=== PATIENT | male | born 1955 | race Hispanic/Latino ===

== ENCOUNTER → 2025-04-21 | Day surgery (SDC) | payer MEDICARE ==
[~2025-04-21] MED LIST: ATORVASTATIN CA20 MG PO; CENTRUM ADULTS1 EACH PO; CLOBETASOL1 EA/15 GM PO; FAMOTIDINE20 MG PO; FENTANYL CITRATE/PF 100MCG/2 ML INJ ONE; FLUOCINONIDE60 ML; IRON; LACTATED RINGER'S 1,000 ML ONE; LIDOCAINE HCL 2% LOCAL INJ 5 ML SDV VIAL INJ ONE; ONDANSETRON ODT4 MG PO; PROPOFOL IV EMULSION 50 ML IV ONE; SIMETHICONE80 MG PO; TYLENOL325 MG PO; VITAMIN D31 ML
[2025-04-21 11:29] VITALS: TEMP 97.4
[2025-04-21 11:55] VITALS: BP 140/80; PULSE 63; RESP 16; O2SAT 98
== END | disposition home or self-care (01) ==
LOC: OR 09:01
PROVIDERS: ATTEND Internal Medicine Gastroenterology
DX: Z12.11 Encounter for screening for malignant neoplasm of colon (principal); C16.2 Malignant neoplasm of body of stomach; K29.50 Unspecified chronic gastritis without bleeding; K29.60 Other gastritis without bleeding; K29.80 Duodenitis without bleeding; K31.89 Other diseases of stomach and duodenum; K59.00 Constipation, unspecified; K21.9 Gastro-esophageal reflux disease without esophagitis; Z93.1 Gastrostomy status; Z93.3 Colostomy status; D64.9 Anemia, unspecified; E78.5 Hyperlipidemia, unspecified; Z79.899 Other long term (current) drug therapy
CPT/HCPCS: 36415; 43239; 44388; 82948; 88305; J2003; J2704; J7121; 45378

== ENCOUNTER → 2025-05-26 | Day surgery (SDC) | payer MEDICARE ==
[~2025-05-26] MED LIST changes: +FERROUS SULFAT325 MG PO; -LACTATED RINGER'S 1,000 ML ONE; +MIDAZOLAM HCL 2 MG/2 ML VIAL ONE; +ONDANSETRON HCL INJ 2MG/ML 2ML 2 MG/ML VIAL ONE; +PANTOPRAZOLE SO40 MG PO; +UREA TOP
[2025-05-26] MEDS: LACTATED RINGER'S 1,000 ML ONE (10:36)
[2025-05-26 12:10] VITALS: BP 138/72; PULSE 54; RESP 15; TEMP 97.4; O2SAT 97
== END | disposition home or self-care (01) ==
LOC: ENDO 07:50
PROVIDERS: ATTEND Internal Medicine Gastroenterology
DX: Z12.11 Encounter for screening for malignant neoplasm of colon (principal); Z93.3 Colostomy status; K59.00 Constipation, unspecified; C16.9 Malignant neoplasm of stomach, unspecified; K29.60 Other gastritis without bleeding; K29.80 Duodenitis without bleeding; D64.9 Anemia, unspecified; E78.5 Hyperlipidemia, unspecified; I10 Essential (primary) hypertension; I25.10 Atherosclerotic heart disease of native coronary artery without angina pectoris; F03.90 Unspecified dementia, unspecified severity, without behavioral disturbance, psychotic disturbance, mood disturbance, and anxiety; Z79.899 Other long term (current) drug therapy
CPT/HCPCS: 36415; 82948; G0104; J2003; J2250; J2405; J2704; J3010; J7121; 45330